=== PATIENT | female | born 1940 ===

== ENCOUNTER → 2020-07-09 09:58 | Outpatient (BNVA) | payer MEDICARE, SELFPAY | PROVIDERS: PCP Internal Medicine; Visit Provider Hospitalist | DX: J41.0 Simple chronic bronchitis (principal); J96.11 Chronic respiratory failure with hypoxia | CPT/HCPCS: 99212 ==

== ENCOUNTER 2020-12-13 08:54 | Outpatient (REF) | payer MEDICARE, SELFPAY ==
--- NOTE | 2020-12-13 17:35 | PFT_ITS ---
FLOWS: FEV1 of 74% of predicted at 1.22 L. FVC 99% of predicted at 2.23 L. FEV1 to FVC ratio of 0.55. No bronchodilator performed as the patient used her bronchodilator approximately 1-1/2 hours prior to the testing. LUNG VOLUMES: Total lung capacity 93% of predicted at 4.42 L. Residual volume 94% of predicted at 2.21 L. Slow vital capacity 91% of predicted at 2.21 L. Expiratory reserve volume 43% of predicted at 0.17 L. Diffusion capacity is severely decreased. IMPRESSION: Moderate obstructive ventilatory defect. No bronchodilator testing was performed as the patient has used her bronchodilator approximately 1-1/2 hours prior to the testing. Decreased diffusion capacity suggests emphysema. MD ADRIANA Quick/MODL / [id number]
== END 2020-12-13 08:55 | disposition home or self-care (01) ==
LOC: HO.RESP 08:54
PROVIDERS: PCP Internal Medicine; Visit Provider Hospitalist
DX: J41.0 Simple chronic bronchitis (principal)
CPT/HCPCS: 94010; 94727; 94729; 99212

== ENCOUNTER → 2021-07-04 13:03 | Outpatient (BNVA) | payer MEDICARE, SELFPAY | PROVIDERS: PCP Internal Medicine; Visit Provider Hospitalist | DX: J41.0 Simple chronic bronchitis (principal); J96.11 Chronic respiratory failure with hypoxia; Z79.899 Other long term (current) drug therapy | CPT/HCPCS: 99212 ==

== ENCOUNTER → 2022-04-14 14:38 | Outpatient (BNVA) | payer MEDICARE, SELFPAY | PROVIDERS: PCP Internal Medicine; Visit Provider Hospitalist | DX: J96.11 Chronic respiratory failure with hypoxia (principal); J41.0 Simple chronic bronchitis | CPT/HCPCS: 99212 ==

== ENCOUNTER 2023-04-20 15:11 | Outpatient (AMB) | payer MEDICARE, SELFPAY ==
[2023-04-20 15:21] VITALS: BMI 21.9
--- NOTE | 2023-04-20 15:21 | MHC.OFFVIS ---
Intake Vital Signs 04/20/23 15:21 Height 5 ft 1 in Weight 116 lb BMI 21.9 Intake Visit Reasons: 6 mins walk/COPD Flying I Instructor Required: No Allergies Bactrim Allergy (Severe, Uncoded 04/20/23 15:23) Rash HPI HPI Comments History of Present Illness Details The patient is an 83-year-old woman known history of COPD. Also has underlying hypoxia in uses oxygen at nighttime due to the COPD. She has been on QVAR and Bevespi with very good response. She has not had to use her rescue therapy. However, her insurance now is not covering the bevespi and will need alternative. The oxygen therapy has been affecting beneficial at nighttime. She does need to continue the oxygen therapy at nighttime. In the meantime the patient needs to be switched ove to a different maintenance inhaler since is not being covered. I do believe trilogy will be a good option for her. In the meantime will have her go back Anoro since she still has QVAR. 12/2019 the patient is here for pulmonary follow-up visit. Overall she feels well. She still complains of dyspnea on exertion moderate severity. Specially when walking outside. She does take the QVAR and also the Anoro with good effect. Sometimes she takes the QVAR and she does not feel like she is getting any medication to her system her. We did talk about starting her on trelegy which she is going to be able to take all medicines at once and have better compliance with the medication. She also uses the oxygen at nighttime with good effect. She has qualified in the past for portable oxygen therapy. She is reluctant to use portable oxygen at this time. Whenever she decides to consider portable oxygen will have her come in for 6 minutes walk test for her for her to qualify for it. 07/09/2020 the patient is here for pulmonary follow-up visit. Overall the patient has been doing well. She had tried the Trelegy inhaler but was not effective for her. Therefore she went back to using the Anoro. She has not been using the QVAR. She denies any mucus production denies any wheezing. This point I think she probably best with the inhale type of medication for maintenance inhaler. Therefore I will send her Bevespi to the pharmacy. We did talk about her x-ray that she had back in December which demonstrated no acute disease. And right now she is diminished. She is using oxygen at nighttime for her nocturnal hypoxia. She may need oxygen with activity. She does check herself at home with a pulse ox and she does not drop below 90%. Will plan to do pulmonary function studies and a 6 minutes walk test during her next visit. 12/13/2020 the patient is here for a pulmonary follow-up visit. She continues to have dyspnea exertion. Moderate in severity. She does not feel the Bevespi or any other inhaler really made a significant difference in her breathing. She has been using her oxygen nighttime. When she is resting she does not feel short of breath. The patient is also recovering a fall where she fractured some ribs. She was evaluated [facility] where she did undergo a CT scan of the chest demonstrating extensive emphysema and the rib fracture. During the visit the patient did undergo pulmonary function studies which were personally viewed by me demonstrating a severe diffusion impairment secondary to her emphysema. The patient did undergo a 6 minutes walk where she did desaturate down to 85% air. She was then placed 3 L her oxygenation did improve to 94 activity. Therefore, will arrange her [employer] to get oxygen portability outside the. Also requested that they performed a conserving device trial to see if she qualifies for a smaller pulse oxygen. 07/04/2021 the patient is here for a pulmonary follow-up visit. The patient apparently developed signs and symptoms consistent with stroke. She could not walk any further. She was taken to [facility] which was admitted. She was diagnosed with a stroke in addition to that she was diagnosed with a myocardial infarction. She did undergo a cardiac catheterization and had a stent placement. In the meantime she continues use the oxygen at nighttime. The oxygen therapy has been affecting beneficial. She was wondering if she should be retested. However, we did review her pulmonary function studies demonstrating a diffusing capacity of only 25 percent predicted. The patient did have a CT scan of the chest also when she went to [facility]. We did personally reviewed. She does have extensive emphysema. No nodular densities to wear well. She does have a significant hiatal hernia. As far as her respiratory status is about the same. She continues on the Bevespi twice a day. She is wondering if this is helpful. Again, we did review her pulmonary function studies demonstrating underlying COPD. I did encourage to continue it but okay for her to just use it once a day. 04/14/2022 the patient is here for a pulmonary follow-up visit. Overall the patient has been doing well. She was briefly hospitalized after having altered mental status changes. Likely from medication and a UTI. The patient now is doing better. She is back to orientation x3. While a [facility] she did have a chest x-ray that I personally reviewed. No acute disease noted. The patient has been using the oxygen at nighttime. She states that when she was at rehab she did in use the oxygen at all. She is wondering if he still needs it. Concur go ahead and perform an overnight oximetry on room air to see if she still needs it. Explained to the patient that sometimes the overnight ox oximetries test I does not shots done always tell the full story. Will go ahead and do the testing. 04/20/2023 the patient is here for a pulmonary follow-up visit. She is been having hard time with her breathing. Having significant shortness of breath and chest tightness. The patient has been using her oxygen with sleep. Although even with minimal activity she is getting very winded. She has a hard time walking because of her musculoskeletal issues. She does use a walker for the most part. The patient is wondering if she needs oxygen with activity. In the meantime she has been using the Bevespi inhaler. She does not have a rescue inhaler. She has significant wheezing on examination with a very prolonged expiratory phase. We did provide her with a nebulized treatment in the office with Xopenex and improvement was significant. Therefore we will provide her with a nebulizer for her to take with her. She can use the nebulizer with Xopenex in addition to budesonide. She should continue with Bevespi. The patient will need a little bit of prednisone just to try to improve her respiratory symptoms a little faster. Patient also went for a very brief walking oximetry. She is very limited only walking about 25 ft. However, her pulse ox was decreased down to about 84 %. Although difficult to get a good wave. We did place on 3 L maintaining a pulse ox of 92% so therefore the patient will be able to use 3 L with activity and 2 L with sleep. Does not appear that she needs oxygen at rest at this time. If the patient is no better she will call the office and request a chest x-ray. will have the patient follow-up in 3 months time. The patient will call the office if she is not doing any better prior to that. Will send a script also as a revision for her oxygen in order for her to get portable tanks to be able to take with her outside of the home. Based on her oxygen needs she will not likely a qualify for a conserving valve at this time. Will reassess a conserving valve during her next visit in 3 months. [facility] Medical History (Updated 07/04/21 @ 22:00 by Landen Isidro MD) CAD (coronary artery disease) CVA (cerebral vascular accident) Chronic respiratory failure COPD (chronic obstructive pulmonary disease) Social History (Updated 12/13/20 @ 10:06 by HERMELINDO Hatch) Patient Tobacco Use Status: Former Tobacco user Tobacco use type: Cigarette Years Smoked: 30 years Review of Systems Const Denies night sweats and Reports weakness ENT Denies change in voice, Denies lip swelling, Denies mouth pain, Reports nasal congestion, Reports nasal discharge and Denies tongue swelling Card Denies chest pain, Reports dyspnea and Reports dyspnea on exertion Resp Reports cough, Reports dyspnea, Reports dyspnea on exertion and Reports wheezing GI Denies abdominal pain Musc Denies no additional complaints Neuro Reports Neuro-related abnormal movements, Reports paresthesias and Reports weakness Psych Denies no additional complaints Kumar/Lymph Denies easy bleeding and Denies lymphadenopathy Aller/Immun Denies lip swelling, Denies tongue swelling and Reports wheezing Physical Exam Vital Signs: BMI result Body Mass Index 21.9 Const General: alert Neck Neck: Yes normal visual inspection, Yes full ROM and Yes no lymphadenopathy Chest Chest palpation & inspection: normal inspection of the chest Resp Effort & Inspection: prolonged expiratory phase Auscultation: wheezes and diminished lung sounds Cardio Rate: regular rate Rhythm: regular rhythm Heart sounds: S1 normal heart sound present and S2 normal heart sound present GI Palpation (GI): Soft to palpation and nontender Auscultation: normal bowel sounds Skin General skin exam: rashes and/or lesions noted Extrem Right lower extremity: foot Details: ROM of toes abnormal Office Procedures 6 Minute Walk Time:: 22:33 SPO2 % at rest: 92 Pulse at rest: 78 SPO2 % during excercise: 84 Pulse during excercise: 89 Distance in yards walked: 25 Homer Score: 7 Supplemental Oxygen: Ambulated with walker and 2 assist, Low pox with activity on RA 84%. 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 1.25 mg inhalation 3 mL [id number] 12/30/23 72611-273-27 [employer] Assessment & Plan Assessment & Plan (1) Chronic respiratory failure: Code(s): J96.10 - Chronic respiratory failure, unspecified whether with hypoxia or hypercapnia Qualifiers: Respiratory failure complication: hypoxia Qualified Code(s): J96.11 - Chronic respiratory failure with hypoxia (2) COPD (chronic obstructive pulmonary disease): Code(s): J44.9 - Chronic obstructive pulmonary disease, unspecified Qualifiers: COPD type: chronic bronchitis Chronic bronchitis type: simple Qualified Code(s): J41.0 - Simple chronic bronchitis Plan Continue Bevespi, ok to use once a day Predniaone taper continue 2 L while sleeping start 3L NC with activity Provided nebulizer Xopenex BID BUdesonide daily. Prednisone taper CXR if no better Follow-up in 3 months Orders: Orders AMB Nebulizer Treatment Today J44.9 - Chronic obstructive pulmonary disease, unspecified Medications: New prednisone PO daily; Take 2 tabs daily x 5 days, then 1 tab daily x 5 days 10 days 15 tabs 0RF budesonide 0.5 mg (2 mL) inhalation DAILY 30 days 60 mL 11RF J44.9 - Chronic obstructive pulmonary disease, unspecified levalbuterol HCl 1.25 mg (3 mL) inhalation BID 30 days 180 mL 11RF J44.9 - Chronic obstructive pulmonary disease, unspecified Coding Level of Care Code Est Pt Level 4 (92203) Diagnoses Chronic respiratory failure with hypoxia J96.11 Respiratory failure complication: hypoxia Simple chronic bronchitis J41.0 COPD type: chronic bronchitis Chronic bronchitis type: simple CPT Codes Coding ([id number]) Nebulizer Treatment - Nebulizer Treatment, initial or subsequent: [id number]/MDI RX initial, or Nebulizer Subsequent Treatment ([id number]) Time Spent (min) 18
[2023-04-20 22:32] VITALS: PULSE 78; O2SAT 92
== END 2023-04-21 07:55 | disposition home or self-care (01) ==
PROVIDERS: PCP Internal Medicine; Visit Provider Hospitalist
DX: J96.11 Chronic respiratory failure with hypoxia (principal); J41.0 Simple chronic bronchitis
CPT/HCPCS: 94618; 99214

== ENCOUNTER → 2023-04-20 15:11 | Outpatient (BNVA) | payer MEDICARE, SELFPAY | PROVIDERS: PCP Internal Medicine; Visit Provider Hospitalist | DX: J96.11 Chronic respiratory failure with hypoxia (principal); J41.0 Simple chronic bronchitis | CPT/HCPCS: 94618; 94640; 99212 ==

== ENCOUNTER 2024-08-02 14:55 | Outpatient (AMB) | payer MEDICARE, SELFPAY ==
--- NOTE | 2024-08-02 14:57 | A.OFFVIS_ITS ---
Vital Signs 08/02/24 15:00 Height 5 ft 2 in Weight 120 lb 2.431 oz BMI 22.0 BP 148/70 H Blood Pressure Location Lt brachial Position Sitting Pulse 61 Pulse Source Pulse Oximeter Pulse Oximetry (%) 88 L Oxygen Delivery Method Room Air Intake Visit Reasons: COPD Allergies Bactrim Allergy (Severe, Uncoded 08/02/24 15:05) Rash Medication List - Last Reconciled 08/02/24 by Ruthie Stafford, BARBRA albuterol sulfate 90 mcg/actuation 2 puffs PO Q6H PRN aspirin 81 mg PO DAILY atorvastatin 80 mg PO DAILY baclofen 5 mg PO BID PRN bisoprolol fumarate 5 mg PO DAILY budesonide 0.5 mg (2 mL) inhalation DAILY 90 days vac 2019 [id number](PF) 60 mcg (15 mcg x 4)/0.5 mL IM folic acid 1 mg PO DAILY furosemide 20 mg PO BID glycopyrrolate-formoterol 9-4.8 mcg (Bevespi Aerosphere) 2 puffs inhalation Q12H 30 days levalbuterol HCl 1.25 mg (3 mL) inhalation BID 90 days levalbuterol tartrate 45 mcg/actuation (Xopenex HFA) 2 puffs inhalation Q6H PRN 30 days levothyroxine 75 mcg PO DAILY metformin 500 mg PO DAILY pantoprazole 40 mg PO DAILY prednisone PO daily; Take 2 tabs daily x 5 days, then 1 tab daily x 5 days 10 days simvastatin 80 mg PO DAILY venlafaxine 75 mg PO BID HPI Comments Details: The patient is an 84-year-old woman known history of COPD. Also has underlying hypoxia in uses oxygen at nighttime due to the COPD. She has been on QVAR and Bevespi with very good response. She has not had to use her rescue therapy. However, her insurance now is not covering the bevespi and will need alternative. The oxygen therapy has been affecting beneficial at nighttime. She does need to continue the oxygen therapy at nighttime. In the meantime the patient needs to be switched ove to a different maintenance inhaler since is not being covered. I do believe trilogy will be a good option for her. In the meantime will have her go back Anoro since she still has QVAR. 12/2019 the patient is here for pulmonary follow-up visit. Overall she feels well. She still complains of dyspnea on exertion moderate severity. Specially when walking outside. She does take the QVAR and also the Anoro with good effect. Sometimes she takes the QVAR and she does not feel like she is getting any medication to her system her. We did talk about starting her on trelegy which she is going to be able to take all medicines at once and have better compliance with the medication. She also uses the oxygen at nighttime with good effect. She has qualified in the past for portable oxygen therapy. She is reluctant to use portable oxygen at this time. Whenever she decides to consider portable oxygen will have her come in for 6 minutes walk test for her for her to qualify for it. 07/09/2020 the patient is here for pulmonary follow-up visit. Overall the patient has been doing well. She had tried the Trelegy inhaler but was not effective for her. Therefore she went back to using the Anoro. She has not been using the QVAR. She denies any mucus production denies any wheezing. This point I think she probably best with the inhale type of medication for maintenance inhaler. Therefore I will send her Bevespi to the pharmacy. We did talk about her x-ray that she had back in December which demonstrated no acute disease. And right now she is diminished. She is using oxygen at nighttime for her nocturnal hypoxia. She may need oxygen with activity. She does check herself at home with a pulse ox and she does not drop below 90%. Will plan to do pulmonary function studies and a 6 minutes walk test during her next visit. 12/13/2020 the patient is here for a pulmonary follow-up visit. She continues to have dyspnea exertion. Moderate in severity. She does not feel the Bevespi or any other inhaler really made a significant difference in her breathing. She has been using her oxygen nighttime. When she is resting she does not feel short of breath. The patient is also recovering a fall where she fractured some ribs. She was evaluated [facility] where she did undergo a CT scan of the chest demonstrating extensive emphysema and the rib fracture. During the visit the patient did undergo pulmonary function studies which were personally viewed by me demonstrating a severe diffusion impairment secondary to her emphysema. The patient did undergo a 6 minutes walk where she did desaturate down to 85% air. She was then placed 3 L her oxygenation did improve to 94 activity. Therefore, will arrange her DME company to get oxygen portability outside the. Also requested that they performed a conserving device trial to see if she qualifies for a smaller pulse oxygen. 07/04/2021 the patient is here for a pulmonary follow-up visit. The patient apparently developed signs and symptoms consistent with stroke. She could not walk any further. She was taken to [facility] which was admitted. She was diagnosed with a stroke in addition to that she was diagnosed with a myocardial infarction. She did undergo a cardiac catheterization and had a stent placement. In the meantime she continues use the oxygen at nighttime. The oxygen therapy has been affecting beneficial. She was wondering if she should be retested. However, we did review her pulmonary function studies demonstrating a diffusing capacity of only 25 percent predicted. The patient did have a CT scan of the chest also when she went to [facility]. We did personally reviewed. She does have extensive emphysema. No nodular densities to wear well. She does have a significant hiatal hernia. As far as her respiratory status is about the same. She continues on the Bevespi twice a day. She is wondering if this is helpful. Again, we did review her pulmonary function studies demonstrating underlying COPD. I did encourage to continue it but okay for her to just use it once a day. 04/14/2022 the patient is here for a pulmonary follow-up visit. Overall the patient has been doing well. She was briefly hospitalized after having altered mental status changes. Likely from medication and a UTI. The patient now is doing better. She is back to orientation x3. While a [facility] she did have a chest x-ray that I personally reviewed. No acute disease noted. The patient has been using the oxygen at nighttime. She states that when she was at rehab she did in use the oxygen at all. She is wondering if he still needs it. Concur go ahead and perform an overnight oximetry on room air to see if she still needs it. Explained to the patient that sometimes the overnight ox oximetries test I does not shots done always tell the full story. Will go ahead and do the testing. 04/20/2023 the patient is here for a pulmonary follow-up visit. She is been having hard time with her breathing. Having significant shortness of breath and chest tightness. The patient has been using her oxygen with sleep. Although even with minimal activity she is getting very winded. She has a hard time walking because of her musculoskeletal issues. She does use a walker for the most part. The patient is wondering if she needs oxygen with activity. In the meantime she has been using the Bevespi inhaler. She does not have a rescue inhaler. She has significant wheezing on examination with a very prolonged expiratory phase. We did provide her with a nebulized treatment in the office with Xopenex and improvement was significant. Therefore we will provide her with a nebulizer for her to take with her. She can use the nebulizer with Xopenex in addition to budesonide. She should continue with Bevespi. The patient will need a little bit of prednisone just to try to improve her respiratory symptoms a little faster. Patient also went for a very brief walking oximetry. She is very limited only walking about 25 ft. However, her pulse ox was decreased down to about 84 %. Although difficult to get a good wave. We did place on 3 L maintaining a pulse ox of 92% so therefore the patient will be able to use 3 L with activity and 2 L with sleep. Does not appear that she needs oxygen at rest at this time. If the patient is no better she will call the office and request a chest x-ray. will have the patient follow-up in 3 months time. The patient will call the office if she is not doing any better prior to that. Will send a script also as a revision for her oxygen in order for her to get portable tanks to be able to take with her outside of the home. Based on her oxygen needs she will not likely a qualify for a conserving valve at this time. Will reassess a conserving valve during her next visit in 3 months. 08/02/2024 the patient is here for pulmonary follow-up visit. The patient since we last spoke has had further physical limitations. She does need a walker with any activity and sometimes she does use a wheelchair to get around because of her unsteady gait. She does have extensive emphysema on CT scan and also evidence of chronic hypoxic respiratory failure requiring oxygen. She does use oxygen 2 L at rest and also with activity and sleep. She has a hard time caring the oxygen tanks because the now she is very limited physically. Therefore will request a portable oxygen concentrator at 2 L pulse the patient can use with more ease outside of the home. In addition to that she continue to use the oxygen 2 L while sleeping. She has had issues with her inhalers were now the Bevespi 2 expensive. Anoro seems to be just as expensive. Also Wixela to the pharmacy. She also can use a nebulizer. Hold off on the budesonide. COUNTS INCLUDE 234 BEDS AT THE [facility] Medical History (Updated 07/04/21 @ 22:00 by Landen Isidro MD) CAD (coronary artery disease) CVA (cerebral vascular accident) Chronic respiratory failure COPD (chronic obstructive pulmonary disease) Social History (Updated 12/13/20 @ 10:06 by HERMELINDO Hatch) Patient Tobacco Use Status: Former Tobacco user Tobacco use type: Cigarette Years Smoked: 30 years Physical Exam Vital Signs: Last Vital Signs Pulse 61 08/02/24 15:00 BP 148/70 H 08/02/24 15:00 Pulse Ox 90 L 08/02/24 15:00 Oxygen Delivery Method Room Air 08/02/24 15:00 BMI result Body Mass Index 22.0 Office Procedures 6 Minute Walk Time:: 20:54 SPO2 % at rest: 88 Pulse at rest: 61 Distance in yards walked: 25 Homer Score: 4 Supplemental Oxygen: Hypoxic at rest 88%, placed on 2L/pulse improving pox 93%, then ambulated with a walker on 2L/pulse with pox 91% [id number] - 6 Minute Walk Assessment & Plan Assessment & Plan (1) Chronic respiratory failure: Code(s): J96.10 - Chronic respiratory failure, unspecified whether with hypoxia or hypercapnia Category: Medical Qualifiers: Respiratory failure complication: hypoxia Qualified Code(s): J96.11 - Chronic respiratory failure with hypoxia (2) COPD (chronic obstructive pulmonary disease): Code(s): J44.9 - Chronic obstructive pulmonary disease, unspecified Category: Medical Qualifiers: COPD type: chronic bronchitis Chronic bronchitis type: simple Qualified Code(s): J41.0 - Simple chronic bronchitis Plan stop Bevespi start Wixela Xopenex BID Stop Budesonide CXR oxygen revision: Requesting POC oxygen 2L/pulse for portability outside of the home. 2l/min while sleeping Follow-up in 3 months Orders: Orders XR chest 2V Today J41.0 - Simple chronic bronchitis Medications: New fluticasone propion-salmeterol 250-50 mcg/dose (Wixela Inhub) 1 inh inhalation Q12H 60 ea 11RF 30 days Refilled levalbuterol HCl 1.25 mg (3 mL) inhalation BID 540 mL 3RF 90 days J44.9 - Chronic obstructive pulmonary disease, unspecified Coding Level of Care Code Est Pt Level 4 (19688) Complex EM visit Add On G2211 Diagnoses Chronic respiratory failure with hypoxia J96.11 Respiratory failure complication: hypoxia Simple chronic bronchitis J41.0 COPD type: chronic bronchitis Chronic bronchitis type: simple CPT Codes Coding ([id number]) Time Spent (min) 18
[2024-08-02 15:00] VITALS: BP 148/70; PULSE 61; O2SAT 88; BMI 22.0
--- OUTSIDE RECORDS SUMMARY | 2024-08-02 18:51 | XMS_ITS ---
Author Name [facility] Organization Unknown History of Medication Use Medication Directions Dispensed Refills Start Date End Date Stat us atorvastatin (LIPITOR) tablet 80 mg Take 1 tablet (80 mg total) by mouth daily. 01/28/2024 active furosemide (LASIX) 20 MG tablet Take 1 tablet (20 mg total) by mouth 2 (two) times a day. 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
--- OUTSIDE RECORDS SUMMARY | 2024-08-02 18:51 | XMS_ITS | Encounter Summary ---
Author Organization [facility] Address [address] [place] [address] Care Team Providers Care Bit Grinder Name Role Phone Byron Serra MD Primary Care Provider [phone] Reason for Visit * Reason Comments Establish Care * Other Medical (Routine) - Authorized Specialty Diagnoses / Procedures Referred By Contac t Referred To Contact Cardiology Diagnoses Chronic systolic heart failure (CMS/HCC) [Per: Suhail Serra, DX: Chronic systolic heart failure, Next Avail] 03/16/24- ECHO- mld info,N/S [place]- [facility] Procedures TRANSTHORACIC ECHOCARDIOGRAM (TTE) COMPLETE (CONTRAST/BUBBLE/3D PRN) TRANSTHORACIC ECHO COMPLETE Byron Serra MD Phone: tel: fax: [facility] Cardiology [facility] [address] [place] [address] Phone: tel: fax: Referral ID Status Reason Start Date Expiration Date V isits Requested Visits Authorized [id number] Authorized 09/14/2023 09/13/2024 8 8 Encounter Details Date Type Department Care Team (Late st Contact Info) Description 07/14/2024 3:00 PM EST Office Visit [facility] Cardiology [facility] [address] [place] [address] Ean Felix MD [address] [place] [address] Coronary artery disease, unspecified vessel or lesion type, unspecified whether angina present, unspecified whether cold [place] or transplanted heart; Heart failure, unspecified HF chronicity, unspecified heart failure type (CMS/HCC) Social History Tobacco Use Types Packs/Day Years Used Date Smoking Tobacco: Never Tobacco Cessation:Counseling Given: Not Answered Alcohol Use Standard Drinks/Week Comments Not Currently 0 (1 standard drink = 0.6 oz pur e alcohol) Comments Unknown Sex and Gender Information Value Date Recorded Sex Assigned at Not on file Legal Sex Female 6:42 AM EST Gender Identity Not on file Sexual Orientation Not on file documented as of this encounter Last Filed Vital Signs Vital Sign Reading Time Taken Comments Blood Pressure 104/66 07/14/2024 2:42 PM EST Pulse 61 07/14/2024 2:42 PM EST Temperature - - Respiratory Rate - - Oxygen Saturation 99% 07/14/2024 2:42 PM EST Inhaled Oxygen Concentration - - Weight 54.4 kg (120 lb) 07/14/2024 2:42 PM EST Height 157.5 cm (5' 2 ) 07/14/2024 2:42 PM EST Body Mass Index 21.95 07/14/2024 2:42 PM EST documented in this encounter Ordered Prescriptions Prescription Sig Dispense Quantity Refills Last Filled Start Date End Date furosemide (LASIX) 20 mg tablet Take 1 tablet (20 mg total) by mouth 1 (one) time each day. 07/14/2024 documented in this encounter Progress Notes * Ean Felix MD - 07/14/2024 3:00 PM ESTAssociated Problem(s): Coronary artery disease Status post PCI of RCA almost 4 years ago. No recurrent angina or ACS since then. Will continue aspirin, and high-dose statin. Orders: Ambulatory referral to Cardiology ECG 12 lead * Ean Felix MD - 07/14/2024 3:00 PM EST 1 year * Ean Felix MD - 07/14/2024 3:00 PM EST Images from the original note were not included. PCP: Byron Serra MD HPI: This is a pleasant 82-year-old female with past medical history significant for coronary artery disease status post non-STEMI with JASMEET to the mid RCA in March 2021, mild HFrEF, cardiomyopathy, CVA with residual right hemiparesis, COPD, and hypothyroidism. She was last in the office a year ago. Cardiac catheterization in March 2021 revealed 20% left main disease, 45% proximal LAD, 60% D2, 30% l eft circumflex, 80% mid RCA diagnosis the culprit lesion, 40% proximal RCA, 30% distal RCA where she received drug-eluting stent to the mid RCA. She was seen by Dr. Arndt previously. Ms. Leigh is here for a routine follow-up accompanied by her family member. Cardiac raygoza, she is doing fine and has no chest discomfort. She had a very brief palpitation a couple months ago, lasting for a couple minutes. Otherwise, she never had a prolonged palpitation. Shortness of breath has beensame and she has been wearing her oxygen constantly for a few years for severe COPD and no portableoxygen unfortunately. She has been using wheelchair since CVA. She was hospitalized briefly to [facility] in October 2023 for acute respiratory failure after interruption of home O2. Echocardiogram was repeated during that hospitalization and showed low normal left ventricular systolic function with wall motion abnormality, no significant valvular abnormalities. ROS: All pertinent review of systems as stated in HPI otherwise reviewed and are negative. PAST MEDICAL HISTORY: CAD COPD CVA Diabetes Heart failure ACTIVE MEDICATIONS: Outpatient Medications Marked as Taking for the 07/14/24 encounter (Office Visit) with Ean Felix MD Medication Sig Dispense Refill atorvastatin (LIPITOR) 80 mg tablet Take 80 mg by mouth daily. baclofen (LIORESAL) 5 mg tablet Take 1 tablet (5 mg total) by mouth 2 (two) times a day. bisoprolol (ZEBETA) 5 mg tablet Take 5 mg by mouth daily. folic acid (FOLVITE) 1 mg tablet TAKE 1 TABLET BY MOUTH EVERY DAY FOR 90 DAYS furosemide (LASIX) 20 mg tablet Take 1 tablet (20 mg total) by mouth 1 (one) time each day. levothyroxine (SYNTHROID, LEVOTHROID) 75 mcg tablet TAKE 1 TABLET BY MOUTH EVERY DAY FOR 90 DAYS metFORMIN (GLUCOPHAGE) 500 mg tablet TAKE 1 TABLET BY MOUTH EVERY DAY WITH A MEAL FOR 90 DAYS pantoprazole (PROTONIX) 40 mg EC tablet Take 40 mg by mouth daily. venlafaxine (EFFEXOR) 75 mg tablet TAKE 1 TABLET BY MOUTH TWICE A DAY WITH FOOD [DISCONTINUED] furosemide (LASIX) 20 mg tablet Take 20 mg by mouth 2 times daily. ALLERGIES: Allergies Allergen Reactions Sulfamethoxazole-Trimethoprim PHYSICAL EXAM: Vitals: 07/14/24 1442 BP: 104/66 Pulse: 61 SpO2: 99% Weight: 54.4 kg (120 lb) Height: 1.575 m (62 ) Physical Exam APPEARANCE: Alert and in no acute distress EYES: PERRLA, conjunctiva and sclera normal. NECK: Neck supple, thyroid symmetric and of normal size HEART: RRR with normal S1 and S2, no murmurs, no gallops, no JVD appreciated LUNG: diminished in all العلي ABDOMEN: Bowel sounds normoactive, soft, non-tender, without organomegaly or palpable masses EXTREMITIES: Extremities warm and well perfused without clubbing, cyanosis, or edema NEURO: Awake, alert. R hemiphresis SKIN: Skin color, texture, turgor normal. No rashes or lesions. MUSCULOSKELETAL: use a wheelchair TESTING: EKG: IMPRESSION: 1. Coronary artery disease, unspecified vessel or lesion type, unspecified whether angina present, unspecified whether [place] or transplanted heart 2. Heart failure, unspecified HF chronicity, unspecified heart failure type (CMS/HCC) ASSESSMENT/PLAN: Assessment & Plan Coronary artery disease, unspecified vessel or lesion type, unspecified whether angina present, unspecified whether cold [place] or transplanted heart Status post PCI of RCA almost 4 years ago. No recurrent angina or ACS since then. Will continue aspirin, and high-dose statin. Orders: Ambulatory referral to Cardiology ECG 12 lead Heart failure, unspecified HF chronicity, unspecified heart failure type (CMS/HCC) She appears euvolemic. Will reduce furosemide to 20 mg daily. Orders: Ambulatory referral to Cardiology ECG 12 lead B-type natriuretic peptide; Future The [facility] team will continue to co-manage this patient following the plan of care as established by my initial visit and as per AHA guidelines for ongoing management and surveillance of CAD and heart failure . This will include medication titration, initiation of appropriate medications and further ti tration, and diagnostic studies to manage this disease process. Thank you for allowing us to participate in the care of this patient. The patient will follow up with Cardiology 1 year CC: @PCP documented in this encounter Plan of Treatment Scheduled Orders Name Type Priority Associated Diagnoses Orde r Schedule B-type natriuretic peptide Lab Routine Heart failure, unspecified HF chronicity, unspecified heart failure type (CMS/HCC) 1 Occurrences starting 07/14/2024 until 07/14/2025 documented as of this encounter Procedures Procedure Name Priority Date/Time Associated Diagnosis Comments ECG 12-LEAD Routine 07/14/2024 2:54 PM EST Coronary artery disease, unspecified vessel or lesion type, unspecified whether angina present, unspecified whether [place] or transplanted heart Heart failure, unspecified HF chronicity, unspecified heart failure type (CMS/HCC) documented in this encounter Results * ECG 12 lead (07/14/2024 2:54 PM EST) Ventricular Rate ECG 61 BPM GEMUSE Atrial Rate 61 BPM GEMUSE P-R Interval 130 ms GEMUSE QRS Duration 90 ms GEMUSE Q-T Interval 398 ms GEMUSE QTc 400 ms GEMUSE P Wave [place] 85 degrees GEMUSE R [place] 84 degrees GEMUSE T [place] -56 degrees GEMUSE ECG Interpretation Normal sinus rhythm ST and T wave abnormality, consider inferior ischemia Abnormal ECG When compared with ECG of 12-DEC-2005 00:24, Nonspecific T wave abnormality now evident in Lateral leads Confirmed by Minh FELIX YUFENG ([id number]) on 07/14/2024 3:35:56 PM GEMUSE 07/14/2024 2:54 PM EST 07/14/2024 3:35 PM EST us Ean Felix MD ECG ORDERABLES Final Result GEMUSE documented in this encounter Visit Diagnoses Diagnosis Coronary artery disease, unspecified vessel or lesion type, unspecified whether angina present, unspecified whether [place] or transplanted heart Heart failure, unspecified HF chronicity, unspecified heart failure type ([facility]) documented in this encounter Discontinued Medications Medication Sig Discontinue Reason Start Date End Da te furosemide (LASIX) 20 mg tablet Take 20 mg by mouth 2 times daily. Reorder 07/14/2024 documented as of this encounter Historical Medications * This list may reflect changes made after this encounter. aspirin 81 mg EC tablet Take 1 tablet (81 mg total) by mouth 1 (one) time each day. glycopyrrolate-fo rmoterol (Bevespi Aerosphere) 9-4.8 mcg HFA aerosol inhaler inhaler Inhale 2 puffs by mouth 2 (two) times a day. added in this encounter Orders Outpatient Referral Count Last Ordered Date Fir st Ordered Date AMB REFERRAL TO CARDIOLOGY 1 07/14/2024 documented in this encounter Care Teams Bit Grinder Relationship Specialty Start Date End Date Byron Serra MD [address] [place] [id number] PCP - General Internal Medicine 05/06/24 documented as of this encounter
--- OUTSIDE RECORDS SUMMARY | 2024-08-02 18:51 | XMS_ITS | Clinical Summary ---
Author Organization [facility] [employer] Address [address] [place] [address] Phone Care Team Providers Care Crew Member Name Role Phone Byron Serra MD Primary Care Provider Allergies Active Allergy Reactions Criticality Noted Date Comments Sulfamethoxazole-Trimethoprim 2023 Medications atorvastatin (LIPITOR) 80 mg tablet Take 80 mg by mouth daily. Active baclofen (LIORESAL) 5 mg tablet Take 1 tablet (5 mg total) by mouth 2 (two) times a day. Active bisoprolol (ZEBETA) 5 mg tablet Take 5 mg by mouth daily. Active folic acid (FOLVITE) 1 mg tablet TAKE 1 TABLET BY MOUTH EVERY DAY FOR 90 DAYS Active levothyroxine (SYNTHROID, LEVOTHROID) 75 mcg tablet TAKE 1 TABLET BY MOUTH EVERY DAY FOR 90 DAYS Active pantoprazole (PROTONIX) 40 mg EC tablet Take 40 mg by mouth daily. Active venlafaxine (EFFEXOR) 75 mg tablet TAKE 1 TABLET BY MOUTH TWICE A DAY WITH FOOD Active metFORMIN (GLUCOPHAGE) 500 mg tablet TAKE 1 TABLET BY MOUTH EVERY DAY WITH A MEAL FOR 90 DAYS Active glycopyrrolate- formoterol (Bevespi Aerosphere) 9-4.8 mcg HFA aerosol inhaler inhaler Inhale 2 puffs by mouth 2 (two) times a day. Active furosemide (LASIX) 20 mg tablet Take 1 tablet (20 mg total) by mouth 1 (one) time each day. 5 Active aspirin 81 mg EC tablet Take 1 tablet (81 mg total) by mouth 1 (one) time each day. Active furosemide (LASIX) 20 mg tablet Take 20 mg by mouth 2 times daily. 07/14/19 25 Discontinu ed(Reorder ) Active Problems Problem Noted Date Diagnosed Date Coronary artery disease 07/14/2024 Assessment & Plan (07/14/2024 4:59 PM EST): Status post PCI of RCA almost 4 years ago. No recurrent angina or ACS since then. Will continue aspirin, and high-dose statin. Orders: Ambulatory referral to Cardiology ECG 12 lead Encounters Date Type Department Care Team Description 07/14/2024 3:00 PM EST Office Visit [facility] [address] [place] [address] Ean Felix MD Coronary artery disease, unspecified vessel or lesion type, unspecified whether angina present, unspecified whether [place] or transplanted heart; Heart failure, unspecified HF chronicity, unspecified heart failure type ([facility]) 05/06/2024 Telephone [facility] [address] [place] [id number] Provider, MD Garrett Appointment; Referral from Last 3 Months Surgical History Surgery Date Site/Laterality Comments HYSTERECTOMY PROCEDURE:HYSTERECTOMY SECTION PROCEDURE: SECTION CAROTID STENT PROCEDURE:CAROTID STENT Medical History Medical History Date Comments Hypothyroidism DX:Hypothyroidis m Stroke ([facility]) DX:Stroke ([facility]) Social History Tobacco Use Types Packs/Day Years [...] on file Sexual Orientation Not on file Obstetrics History Last Filed Vital Signs Vital Sign Reading [...] Mass Index 21.95 07/14/2024 2:42 PM EST Plan of Treatment Health Maintenance Due Date Last Done Comments DTaP,Tdap,and Td Vaccines (1 - Tdap) 1959 Pneumococcal Vaccine: 50+ Years (1 of 2 - PCV) 1959 Zoster Vaccines (3 of 3) 02/24/2018 12/30/2017, 07/30 Cholesterol Screening (Lipid Panel) 05/04/2022 Depression Screening 05/04/2022 Falls Risk Assessment 05/04/2022 Medicare Annual Wellness Visit 05/04/2022 Osteoporosis Screening (Bone Density Screening) 05/04/2022 Social Influencers of Health Screening 05/04/2022 Hypertension/CHF/CAD Annual BMP Blood Test 07/15/2023 RSV Immunization Patients 60+ Years Old Completed 04/11/2023 COVID-19 Vaccine Completed 04/09/2024, , 12/05/2021, Additional history exists Influenza Vaccine Completed 04/09/2024, , 04/11/2021, Additional history exists HIB Vaccines Aged Out No longer eligi ble based on patient's age to complete this topic HPV Vaccines Aged Out No longer eligi ble based on patient's age to complete this topic Hepatitis A Vaccines Aged Out No long er eligible based on patient's age to complete this topic Hepatitis B Vaccines Aged Out No long er eligible based on patient's age to complete this topic IPV Vaccines Aged Out No longer eligi ble based on patient's age to complete this topic MMR Vaccines Aged Out No longer eligi ble based on patient's age to complete this topic Meningococcal ACWY Vaccine Aged Out N o longer eligible based on patient's age to complete this topic Meningococcal B Vacine Aged Out No lo nger eligible based on patient's age to complete this topic RSV Immunization Patients Under 20 months Aged Out No longer eligible based on patient's age to complete this topic Varicella Vaccines Aged Out No longer eligible based on patient's age to complete this topic Procedures Procedure Name Priority Date/Time Associated Diagnosis Comments ECG 12-LEAD Routine 07/14/2024 2:54 PM EST Coronary artery disease, unspecified vessel or lesion type, unspecified whether angina present, unspecified whether [place] or transplanted heart Heart failure, unspecified HF chronicity, unspecified heart failure type ([facility]) from Last 3 Months Results * ECG 12 lead (07/14/2024 2:54 PM EST) Ventricular Rate ECG 61 BPM GEMUSE Atrial Rate 61 BPM GEMUSE P-R Interval 130 ms GEMUSE QRS Duration 90 ms GEMUSE Q-T Interval 398 ms GEMUSE QTc 400 ms GEMUSE P Wave [place] 85 degrees GEMUSE R [place] 84 degrees GEMUSE T [place] -56 degrees GEMUSE ECG Interpretation Normal sinus rhythm ST and T wave abnormality, consider inferior ischemia Abnormal ECG When compared with ECG of 12-DEC-2005 00:24, Nonspecific T wave abnormality now evident in Lateral leads Confirmed by Minh FELIX, EAN ([id number]) on 07/14/2024 3:35:56 PM GEMUSE 07/14/2024 2:54 PM EST 07/14/2024 3:35 PM EST us Ean Felix MD ECG ORDERABLES Final Result GEMUSE from Last 3 Months Insurance [employer] Care Teams Crew Member Relationship Specialty Start Date End Date Byron Serra MD [address] [place] [address] PCP - General Internal Medicine 05/06/24
--- OUTSIDE RECORDS SUMMARY | 2024-08-02 18:51 | XMS_ITS | Clinical Summary ---
Author Organization [facility] Address [address] [place] [address] Care Team Providers Care Manager Of Corporate Name Role Phone Unavailable Primary Care Provider Unavailabl e Allergies Active Allergy Reactions Criticality Noted Date Comments Sulfamethoxazole-Trimethop rim 02/17/2024 Other reaction(s): Rash Medications Medication Sig Dispensed Refills Start Date End Date Status atorvastatin (LIPITOR) tablet 80 mg Take 1 tablet (80 mg total) by mouth daily. 0 01/28/2024 Active baclofen (LIORESAL) 5 MG tablet TAKE 1 TABLET BY MOUTH TWICE A DAY NEEDED 0 01/06/2024 Active bisoprolol (ZEBETA) 5 MG tablet Take 1 tablet (5 mg total) by mouth daily. 0 01/15/2024 Active folic acid (FOLVITE) tablet 1 mg TAKE 1 TABLET BY MOUTH EVERY DAY FOR 90 DAYS 0 11/21/2023 Active furosemide (LASIX) 20 MG tablet Take 1 tablet (20 mg total) by mouth 2 (two) times a day. 0 12/09/2023 Active levothyroxine (SYNTHROID) tablet 75 mcg TAKE 1 TABLET BY MOUTH EVERY DAY FOR 90 DAYS 0 01/15/2024 Active metFORMIN (GLUCOPHAGE) tablet 500 mg TAKE 1 TABLET BY MOUTH EVERY DAY WITH A MEAL FOR 90 DAYS 0 11/21/2023 Active pantoprazole (PROTONIX) 40 MG tablet Take 1 tablet (40 mg total) by mouth daily. 0 01/26/2024 Active venlafaxine (EFFEXOR) 75 MG tablet TAKE 1 TABLET BY MOUTH TWICE A DAY WITH FOOD 0 12/28/2023 Active Social History Tobacco Use Types Packs/Day Years Used Date Smoking Tobacco: Never Assessed Sex and Gender Information Value Date Recorded Sex Assigned at Female 2024 2:14 PM EDT Gender Identity Not on file Sexual Orientation Not on file Job Start Date Occupation Industry Not on file Not on file Not on file Last Filed Vital Signs Vital Sign Reading Time Taken Comments Blood Pressure 117/70 02/17/2024 1:04 PM EDT Pulse 63 02/17/2024 1:04 PM EDT Temperature 36 ??C (96.8 ??F) 02/17/2024 1:04 PM EDT Respiratory Rate - - Oxygen Saturation 87% 02/17/2024 1:04 PM EDT Inhaled Oxygen Concentration - - Weight - - Height - - Body Mass Index - - Plan of Treatment Health Maintenance Due Date Last Done Comments COVID-19 Vaccine (#1) 1938 Depression Screening 1950 Preventative Health Evaluation 01/05/1956 DTap / Tdap / Td (1 - Tdap) 1957 Fall Risk Assessment 2003 Osteoporosis Screening (DEXA Scan) 2003 Pneumococcal Vaccine (1 of 1 - PCV) 2003 RSV Adult > 60+ Yrs or Pregn ant (1 - 1-dose 75+ series) 2013 Shingrix-Zoster Vaccine (2 of 2) 02/24/2018 12/31/19 18 Influenza Vaccine (#1) 2024 02/16/2020 Hepatitis B Vaccines Aged Out No long er eligible based on patient's age to complete this topic RSV Ped < 20 months Aged Out No longe r eligible based on patient's age to complete this topic
[2024-08-02 20:53] VITALS: PULSE 61; O2SAT 88
== END 2024-08-02 15:32 | disposition home or self-care (01) ==
PROVIDERS: PCP Internal Medicine; Visit Provider Hospitalist
DX: J96.11 Chronic respiratory failure with hypoxia (principal); J41.0 Simple chronic bronchitis
CPT/HCPCS: 94618; 99214; G2211

== ENCOUNTER → 2024-08-02 14:55 | Outpatient (BNVA) | payer MEDICARE, SELFPAY | PROVIDERS: PCP Internal Medicine; Visit Provider Hospitalist | DX: J41.0 Simple chronic bronchitis (principal); J96.11 Chronic respiratory failure with hypoxia | CPT/HCPCS: 94618; 99212 ==

== ENCOUNTER 2025-05-08 14:16 | Outpatient (AMB) | payer MEDICARE, SELFPAY ==
[2025-05-08 14:28] VITALS: BP 130/64; PULSE 64; O2SAT 92; BMI 21.6
--- NOTE | 2025-05-08 14:28 | A.OFFVIS_ITS ---
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 Also has underlying hypoxia in uses oxygen at nighttime due to the COPD. She has been on QVAR and Bevespi with very good response. She has not had to use her rescue therapy. However, her insurance now is not covering the bevespi and will need alternative. The oxygen therapy has been affecting beneficial at nighttime. She does need to continue the oxygen therapy at nighttime. In the meantime the patient needs to be switched ove to a different maintenance inhaler since is not being covered. I do believe trilogy will be a good option for her. In the meantime will have her go back Anoro since she still has QVAR. 12/2019 the patient is here for pulmonary follow-up visit. Overall she feels well. She still complains of dyspnea on exertion moderate severity. Specially when walking outside. She does take the QVAR and also the Anoro with good effect. Sometimes she takes the QVAR and she does not feel like she is getting any medication to her system her. We did talk about starting her on trelegy which she is going to be able to take all medicines at once and have better compliance with the medication. She also uses the oxygen at nighttime with good effect. She has qualified in the past for portable oxygen therapy. She is reluctant to use portable oxygen at this time. Whenever she decides to consider portable oxygen will have her come in for 6 minutes walk test for her for her to qualify for it. 07/09/2020 the patient is here for pulmonary follow-up visit. Overall the patient has been doing well. She had tried the Trelegy inhaler but was not effective for her. Therefore she went back to using the Anoro. She has not been using the QVAR. She denies any mucus production denies any wheezing. This point I think she probably best with the inhale type of medication for maintenance inhaler. Therefore I will send her Bevespi to the pharmacy. We did talk about her x-ray that she had back in December which demonstrated no acute disease. And right now she is diminished. She is using oxygen at nighttime for her nocturnal hypoxia. She may need oxygen with activity. She does check herself at home with a pulse ox and she does not drop below 90%. Will plan to do pulmonary function studies and a 6 minutes walk test during her next visit. 12/13/2020 the patient is here for a pulmonary follow-up visit. She continues to have dyspnea exertion. Moderate in severity. She does not feel the Bevespi or any other inhaler really made a significant difference in her breathing. She has been using her oxygen nighttime. When she is resting she does not feel short of breath. The patient is also recovering a fall where she fractured some ribs. She was evaluated [facility] where she did undergo a CT scan of the chest demonstrating extensive emphysema and the rib fracture. During the visit the patient did undergo pulmonary function studies which were personally viewed by me demonstrating a severe diffusion impairment secondary to her emphysema. The patient did undergo a 6 minutes walk where she did desaturate down to 85% air. She was then placed 3 L her oxygenation did improve to 94 activity. Therefore, will arrange her [employer] to get oxygen portability outside the. Also requested that they performed a conserving device trial to see if she qualifies for a smaller pulse oxygen. 07/04/2021 the patient is here for a pulmonary follow-up visit. The patient apparently developed signs and symptoms consistent with stroke. She could not walk any further. She was taken to [facility] which was admitted. She was diagnosed with a stroke in addition to that she was diagnosed with a myocardial infarction. She did undergo a cardiac catheterization and had a stent placement. In the meantime she continues use the oxygen at nighttime. The oxygen therapy has been affecting beneficial. She was wondering if she should be retested. However, we did review her pulmonary function studies demonstrating a diffusing capacity of only 25 percent predicted. The patient did have a CT scan of the chest also when she went to [facility]. We did personally reviewed. She does have extensive emphysema. No nodular densities to wear well. She does have a significant hiatal hernia. As far as her respiratory status is about the same. She continues on the Bevespi twice a day. She is wondering if this is helpful. Again, we did review her pulmonary function studies demonstrating underlying COPD. I did encourage to continue it but okay for her to just use it once a day. 04/14/2022 the patient is here for a pulmonary follow-up visit. Overall the patient has been doing well. She was briefly hospitalized after having altered mental status changes. Likely from medication and a UTI. The patient now is doing better. She is back to orientation x3. While a [facility] she did have a chest x-ray that I personally reviewed. No acute disease noted. The patient has been using the oxygen at nighttime. She states that when she was at rehab she did in use the oxygen at all. She is wondering if he still needs it. Concur go ahead and perform an overnight oximetry on room air to see if she still needs it. Explained to the patient that sometimes the overnight ox oximetries test I does not shots done always tell the full story. Will go ahead and do the testing. 04/20/2023 the patient is here for a pulmonary follow-up visit. She is been having hard time with her breathing. Having significant shortness of breath and chest tightness. The patient has been using her oxygen with sleep. Although even with minimal activity she is getting very winded. She has a hard time walking because of her musculoskeletal issues. She does use a walker for the most part. The patient is wondering if she needs oxygen with activity. In the meantime she has been using the Bevespi inhaler. She does not have a rescue inhaler. She has significant wheezing on examination with a very prolonged expiratory phase. We did provide her with a nebulized treatment in the office with Xopenex and improvement was significant. Therefore we will provide her with a nebulizer for her to take with her. She can use the nebulizer with Xopenex in addition to budesonide. She should continue with Bevespi. The patient will need a little bit of prednisone just to try to improve her respiratory symptoms a little faster. Patient also went for a very brief walking oximetry. She is very limited only walking about 25 ft. However, her pulse ox was decreased down to about 84 %. Although difficult to get a good wave. We did place on 3 L maintaining a pulse ox of 92% so therefore the patient will be able to use 3 L with activity and 2 L with sleep. Does not appear that she needs oxygen at rest at this time. If the patient is no better she will call the office and request a chest x-ray. will have the patient follow-up in 3 months time. The patient will call the office if she is not doing any better prior to that. Will send a script also as a revision for her oxygen in order for her to get portable tanks to be able to take with her outside of the home. Based on her oxygen needs she will not likely a qualify for a conserving valve at this time. Will reassess a conserving valve during her next visit in 3 months. 08/02/2024 the patient is here for pulmonary follow-up visit. The patient since we last spoke has had further physical limitations. She does need a walker with any activity and sometimes she does use a wheelchair to get around because of her unsteady gait. She does have extensive emphysema on CT scan and also evidence of chronic hypoxic respiratory failure requiring oxygen. She does use oxygen 2 L at rest and also with activity and sleep. She has a hard time caring the oxygen tanks because the now she is very limited physically. Therefore will request a portable oxygen concentrator at 2 L pulse the patient can use with more ease outside of the home. In addition to that she continue to use the oxygen 2 L while sleeping. She has had issues with her inhalers were now the Bevespi 2 expensive. Anoro seems to be just as expensive. Also Wixela to the pharmacy. She also can use a nebulizer. Hold off on the budesonide. 05/08/2025 the patient is here for pulmonary follow-up visit. Overall she is doing okay. The patient continues on the Xopenex nebs twice a day and she seems to be tolerating that well. Still feels shortness of breath. She mainly uses a wheelchair. She does have a portable oxygen concentrator that she uses with some relief. She also has a concentrator in the home. Although she has a hard time walking because of her right foot. She was going to get Botox for but she ended up decided not to undergo that. So for now she is doing okay her respiratory exam is reassuring. She will continue with the neb treatments as prescribed. I did provide her with an incentive spirometer so she can work on deep breathing exercises to allow her to be able to expand her lungs better specially since she is more limited from a physical standpoint. The patient will follow-up in 6-8 months if she has not issues prior to this she can always call for further recommendations. [facility] Medical History (Updated 07/04/21 @ 22:00 by Landen Isidro MD) CAD (coronary artery disease) CVA (cerebral vascular accident) Chronic respiratory failure COPD (chronic obstructive pulmonary disease) Social History Patient Tobacco Use Status: Former Tobacco user Tobacco use type: Cigarette Years Smoked: 30 years Review of Systems Const Denies night sweats and Reports weakness ENT Denies change in voice, Denies lip swelling, Denies mouth pain, Reports nasal congestion, Reports nasal discharge and Denies tongue swelling Card Denies chest pain, Reports dyspnea and Reports dyspnea on exertion Resp Reports cough, Reports dyspnea, Reports dyspnea on exertion and Reports wheezing GI Denies abdominal pain Musc Reports abnormal gait, Reports deformity and Reports stiffness Neuro Reports Neuro-related abnormal movements, Reports abnormal gait, Reports paresthesias and Reports weakness Psych Denies no additional complaints Kumar/Lymph Denies easy bleeding and Denies lymphadenopathy Aller/Immun Denies lip swelling, Denies tongue swelling and Reports wheezing Physical Exam Vital Signs: Last Vital Signs Pulse 64 05/08/25 14:28 BP 130/64 05/08/25 14:28 Pulse Ox 92 05/08/25 14:28 Oxygen Delivery Method Room Air 05/08/25 14:28 BMI result Body Mass Index 21.6 Const General: alert Neck Neck: Yes normal visual inspection, Yes full ROM and Yes no lymphadenopathy Chest Chest palpation & inspection: normal inspection of the chest Resp Effort & Inspection: prolonged expiratory phase Auscultation: wheezes and diminished lung sounds Cardio Rate: regular rate Rhythm: regular rhythm Heart sounds: S1 normal heart sound present and S2 normal heart sound present GI Palpation (GI): Soft to palpation and nontender Auscultation: normal bowel sounds Skin General skin exam: rashes and/or lesions noted Extrem Right lower extremity: foot Details: ROM of toes abnormal Assessment & Plan Assessment & Plan (1) Chronic respiratory failure: Code(s): J96.10 - Chronic respiratory failure, unspecified whether with hypoxia or hypercapnia Category: Medical Qualifiers: Respiratory failure complication: hypoxia Qualified Code(s): J96.11 - Chronic respiratory failure with hypoxia (2) COPD (chronic obstructive pulmonary disease): Code(s): J44.9 - Chronic obstructive pulmonary disease, unspecified Category: Medical Qualifiers: COPD type: chronic bronchitis Chronic bronchitis type: simple Qualified Code(s): J41.0 - Simple chronic bronchitis Plan Wixela Xopenex BID nebs ISS (provided) oxygen: POC oxygen 2L/pulse for portability outside of the home. 2l/min while sleeping Follow-up in 6-8 months Coding Level of Care Code Complex visit Add On G2211 Diagnoses Chronic respiratory failure with hypoxia J96.11 Respiratory failure complication: hypoxia Simple chronic bronchitis J41.0 COPD type: chronic bronchitis Chronic bronchitis type: simple Time Spent (min) 16
--- OUTSIDE RECORDS SUMMARY | 2025-05-08 23:12 | XMS_ITS | Clinical Summary ---
Author Organization [facility] Expert TA Address [address] [place] [address] Phone Care Team Providers Care Microsoft Crm Developer Name Role Phone Byron Serra MD Primary [...] WITH A MEAL FOR 90 DAYS Active glycopyrrolate-f ormoterol (Bevespi Aerosphere) 9-4.8 mcg HFA aerosol inhaler inhaler Inhale 2 puffs by mouth 2 (two) times a day. Active furosemide (LASIX) 20 mg tablet Take 1 tablet (20 mg total) by mouth 1 (one) time each day. 07/14/2024 Active aspirin 81 mg EC tablet Take 1 tablet (81 mg total) by mouth 1 (one) time each day. Active Active Problems Problem Noted Date Diagnosed Date Coronary artery disease 07/14/2024 Assessment & Plan (07/14/2024 4:59 PM EST): Status post PCI of RCA almost 4 years ago. No recurrent angina or ACS since then. Will continue aspirin, and high-dose statin. Orders: Ambulatory referral to Cardiology ECG 12 lead Surgical History Surgery Date Site/Laterality Comments HYSTERECTOMY PROCEDURE:HYSTERECTOMY SECTION PROCEDURE: SECTION CAROTID STENT PROCEDURE:CAROTID STENT Medical History Medical History Date Comments Hypothyroidism DX:Hypothyroidis m Stroke ([facility] V24, CMS/[facility] V28) DX:Stroke ([facility]) Social History Tobacco Use Types Packs/Day Years [...] on file Sexual Orientation Not on file Last Filed Vital Signs [...] 07/14/2024 2:42 PM EST Plan of Treatment Upcoming Encounters Date Type Department Care Team (Late st Contact Info) Description 05/18/2025 9:30 AM EST Appointment [facility] Ultrasound [address] [place] [address] Health Maintenance Due Date Last Done Comments DTaP,Tdap,and Td Vaccines (1 - Tdap) 1959 Pneumococcal Vaccine: 50+ Years (1 of 2 - PCV) 1959 Zoster Vaccines (3 of 3) 02/24/2018 12/30/2017, 07/30 Cholesterol Screening (Lipid Panel) 05/04/2022 Falls Risk Assessment 05/04/2022 Medicare Annual Wellness Visit 05/04/2022 Osteoporosis Screening (Bone Density Screening) 05/04/2022 Social Influencers of Health Screening 05/04/2022 Depression Screening 06/01/2024 COVID-19 Vaccine ( season) 2025 04/09/2024, 05/22/2022, 12/05/2021, Additional history exists Influenza Vaccine (#1) 2025 , 03/27/2023, 04/11/2021, Additional history exists Hypertension/CHF/CAD Annual BMP Blood Test 12/19/2025 12/19/2024, 12/15/2024, 12/12/2024 RSV Immunization Adult Patients Completed 04/11/2023 HIB Vaccines Aged Out No longer eligi [...] age to complete this topic Meningococcal B Vaccine Aged Out No l onger eligible based on patient's age to complete this topic RSV Immunization Patients Under 20 months Aged Out No longer eligible based on patient's age to complete this topic Varicella Vaccines Aged Out No longer eligible based on patient's age to complete this topic Procedures Procedure Name Priority Date/Time Associated Diagnosis Comments BASIC METABOLIC PANEL Routine 12/19/2024 6:14 AM EDT Essential (primary) hypertension from Last 3 Months or Most Recently Relevant to Health Maintenance Results * Basic metabolic panel (12/19/2024 6:14 AM EDT) Sodium 138 133 - 145 mmol/L LAB CHEMISTRY METHOD 12/19/2024 12:20 PM EDT [facility] Potassium 4.8 3.5 - 5.5 mmol/L LAB CHEMISTRY METHOD 12/19/2024 12:20 PM [facility] Chloride 102 96 - 110 mmol/L LAB CHEMISTRY METHOD 12/19/2024 12:20 PM [facility] CO2 27 21 - 32 mmol/L LAB CHEMISTRY METHOD 12/19/2024 12:20 PM [facility] Anion Gap 9 3 - 11 LAB CHEMISTRY METHOD 12/19/2024 12:20 PM [facility] Glucose 90 70 - 100 mg/dL LAB CHEMISTRY METHOD 12/19/2024 12:20 PM [facility] BUN 15 5 - 25 mg/dL LAB CHEMISTRY METHOD 12/19/2024 12:20 PM [facility] Creatinine 0.82 0.50 - 1.10 mg/dL LAB CHEMISTRY METHOD 12/19/2024 12:20 PM [facility] eGFR 70 >=60 mL/min/1. 73m2 LAB CHEMISTRY METHOD 12/19/2024 12:20 PM [facility] Comment:Calculation based on the Chronic Kidney Disease Epidemiology Collaboration (CKD-EPI) equation refit without adjustment for race. BUN/Creatinine Ratio 18.3 LAB CHEMISTRY METHOD 12/19/2024 12:20 PM [facility] Calcium 9.1 8.5 - 10.5 mg/dL LAB CHEMISTRY METHOD 12/19/2024 12:20 PM [facility] Blood Venous blood specimen / Unknown Venipuncture / Unknown 12/19/2024 6:14 AM EDT 12/19/2024 9:43 AM EDT us Rita Davenport MD LAB BLOOD ORDERABLES Final Resul t [facility] [address] [place] [address], [place] [phone] from Last 3 Months or Most Recently Relevant to Health Maintenance Insurance [employer] Care Teams Microsoft Crm Developer Relationship Specialty Start Date End Date Byron Serra MD [address] [place] [address] PCP - General Internal Medicine 05/06/24
--- OUTSIDE RECORDS SUMMARY | 2025-05-08 23:12 | XMS_ITS ---
Author Organization [facility] Care Team Providers Care Pavilion Cutter Name Role Phone Jackie Alvarado Unavailable Unavailable Rita Davenport Unavailable Unavailable Iva Valadez Unavailable Unavailable Allergies and adverse reactions Code CodeSystem Substance Reaction Severity StartDate Concern Status Bactrim Drug-induced hy perpyrexia (code- 683217765, SNOMED CT) Moderate 03/06/2021 active Care Team Name Role Address Phone Organization Dates Rita Davenport PCP [address] [facility] [address], [address], [facility] (Office): [facility] 03/07/2021 - 05/02/2021 Jackie Alvarado [address], [address], [facility] (Office): [facility] 03/07/2021 - 05/02/2021 Iva Valadez [address], [address], [facility] (Office): [facility] 03/07/2021 - 05/02/2021 Immunizations Immunization Status Vaccine Details Vaccine Code CodeSystem Date Notes Influenza completed Influenza, split virus, trivalent, injectable, contains preservative lotNumber: [id number] expiry: 11/13/2021 Mfg: AFLURIA qUADRIVALENT Given 0.5 ml Left Deltoid intramuscularly 141 CVX created date: 04/04/2021 administer ed date: 04/02/2021 Educated by Gail Bradford on 04/02/2021 SARS-COV-2 (COVID-19) completed SARS-COV-2 (COVID-19) vaccine, mRNA, spike protein, LNP, preservative free, 100 mcg/0.5mL dose or 50 mcg/0.25mL dose Mfg: Moderna Step 2 of Multi-step with next step required 207 CVX created date: 03/07/2021 administer ed date: 08/03/2020 SARS-COV-2 (COVID-19) completed SARS-COV-2 (COVID-19) vaccine, mRNA, spike protein, LNP, preservative free, 100 mcg/0.5mL dose or 50 mcg/0.25mL dose Mfg: Moderna Step 1 of Multi-step with next step required 207 CVX created date: 03/07/2021 administer ed date: 07/06/2020 Mental Status Section Date Assessment Total Score Description 05/02/2021 BIMS 15 cognitively int act CAM 0 No delirium ind icated PHQ-9 00 03/12/2021 BIMS 15 cognitively int act CAM 0 No delirium ind icated PHQ-9 00 Insurance Providers Coverage Status Coverage Type Relationship to Subscriber Member Identifier Subscriber Identifier Group Identifier Payer Identifier and Other information 2021 Code: 51 Code System OID:[id number] .[id number]. 5 Code System Name: Source of Payment Typology (PHDSC) Display: Managed Care (Private) Translation: Code: Code System: OID:[id number] .[id number]. 1336 Code System Name: Insurance Type Code ([id number]) Display Name: Health Maintenance Organization (HMO) Plan Code: SELF Code System Name: HL7 RoleCode Code System OID:[id number] .846458.5.111 Display Name: Self [id number] Root: [id number] Payer Identifier: Root: [id number] Extension: [id number] Payer Name: Rex Address: [address] City: [place] State: [place] Country: [employer] [facility] Code: 81 Code System OID:[id number] .[id number]. 5 Code System Name: Source of Payment Typology (PHDSC) Display: Self Pay Translation: Code: 09 Code System: OID:[id number] .072151.6.255. 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 [address] active 6 CHRONIC OBSTRUCTIVE PULMONARY DISEASE, UNSPECIFIED [address] active 7 CONTRACTURE, RIGHT ANKLE [address] active 8 HEMIPLEGIA AND HEMIPARESIS FOLLOWING CEREBRAL INFARCTION AFFECTING RIGHT DOMINANT SIDE [address] active 9 HYPERLIPIDEMIA, UNSPECIFIED [address] active 10 HYPOTHYROIDISM, UNSPECIFIED [address] active 11 MUSCLE WASTING AND ATROPHY, NOT ELSEWHERE CLASSIFIED, RIGHT LOWER LEG [address] active 12 MUSCLE WASTING AND ATROPHY, NOT ELSEWHERE CLASSIFIED, RIGHT THIGH [address] active 13 MUSCLE WEAKNESS (GENERALIZED) [address] active 14 OTHER ABNORMALITIES OF GAIT AND MOBILITY [address] active 15 OTHER LACK OF COORDINATION [address] active 16 PERIPHERAL VASCULAR DISEASE, UNSPECIFIED [address] active 17 [address]ABETES [address] active 18 [address] ELEVATION (STEMI) 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 [address] active 19 UNSPECIFIED FALL, SEQUELA [address] active 20 UNSTEADINESS ON FEET [address] active 21 WE[address] active Reason for Referral No Reasons for Referral Entered Social History Social History Observation Description Start Date End Date Code Code System Current Smoking Status Tobacco smoking consumption unknown 794952756 SNOMED CT Sex Assigned At Female 1940 29685-7 [facility] Gender Identity Sexual Orientation Vital Signs Code Code System Vitals Name Values and Units Timing Information 12566-6 [facility] Pain Level Value=0.0 05/02/2021 9279-1 [facility] Respiratory Rate Value=18.0 Units=/m in 05/02/2021 8310-5 [facility] Body Temperature Value=97.7 Units= F 05/02/2021 8867-4 [facility] Heart rate Value=72.0 Units=/min 07/2020 8462-4 [facility] Blood Pressure-Diastolic Value=67 Un its=mmHg 05/02/2021 8480-6 [facility] Blood Pressure-Systolic Pvahi=130 Un its=mmHg 05/02/2021 40038-2 [facility] O2 % BldC Oximetry Value=96.0 Units= % 05/02/2021 88909-9 [facility] Weight Lrypr=183.7 Units=Lbs 06/2020 8302-2 [facility] Height Value=63.0 Units=Inches 03/07/2021
--- OUTSIDE RECORDS SUMMARY | 2025-05-08 23:12 | XMS_ITS ---
Author Name [facility] ([place], [place]) Organization Unknown History of Medication Use Medication Directions Dispensed Refills Start Date End Date Stat us atorvastatin (LIPITOR) tablet 80 mg Take 1 tablet (80 mg total) by mouth daily. 01/28/2024 active pantoprazole (PROTONIX) 40 MG tablet Take 1 tablet (40 mg total) by mouth daily. 01/26/2024 active bisoprolol (ZEBETA) 5 MG tablet Take 1 tablet (5 mg total) by mouth daily. 01/15/2024 active levothyroxine (SYNTHROID) tablet 75 mcg TAKE 1 TABLET BY MOUTH EVERY DAY FOR 90 DAYS 01/15/2024 active baclofen (LIORESAL) 5 MG tablet TAKE 1 TABLET BY MOUTH TWICE A DAY NEEDED 01/06/2024 active venlafaxine (EFFEXOR) 75 MG tablet TAKE 1 TABLET BY MOUTH TWICE A DAY WITH FOOD 12/28/2023 active furosemide (LASIX) 20 MG tablet Take 1 tablet (20 mg total) by mouth 2 (two) times a day. 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
--- OUTSIDE RECORDS SUMMARY | 2025-05-08 23:12 | XMS_ITS | Encounter Summary ---
Author Organization [facility] Address [address] [place] [address] Care Team Providers Care Manager Endoscopy Name Role Phone Byron Serra MD Primary Care Provider [phone] Encounter Details Date Type Department Care Team (Late Contact Info) Description 12/24/2024 Lab Requisition [facility] - Main Lab [address] [facility] [place] [address] Rita Davenport MD [address] [place] [address] Essential (primary) hypertension Social History Tobacco Use Types Packs/Day Years Used Date Smoking Tobacco: Never Alcohol Use Standard Drinks/Week Comments Not Currently 0 (1 standard drink = 0.6 oz pur e alcohol) Comments Unknown Sex and Gender Information Value Date Recorded Sex Assigned at Not on file Legal Sex Female 6:42 AM EST Gender Identity Not on file Sexual Orientation Not on file documented as of this encounter Plan of Treatment Upcoming Encounters Date Type Department Care Team (Late Contact Info) Description 05/18/2025 9:30 AM EST Appointment [facility] Ultrasound [address] [place] [address] documented as of this encounter Visit Diagnoses Diagnosis Essential (primary) hypertension Unspecified essential hypertension documented in this encounter Care Teams Manager Endoscopy Relationship Specialty Start Date End Date Byron Serra MD [address] [place] [address] PCP - General Internal Medicine 05/06/24 documented as of this encounter
--- OUTSIDE RECORDS SUMMARY | 2025-05-08 23:12 | XMS_ITS | Encounter Summary ---
Author Organization [facility] Address [address] [place] [address] Care Team Providers Care Signal Intelligence/Electronic Warfare Name Role Phone Byron Serra MD Primary Care Provider [phone] Encounter Details Date Type Department Care Team (Late st Contact Info) Description 12/16/2024 Lab Requisition [facility] - Main Lab [address] [facility] [place] [address] Rita Davenport MD [address] [place] [address] Essential (primary) hypertension Social History Tobacco Use [...] Info) Description 05/18/2025 9:30 AM EST Appointment [facility] Ultrasound [address] [place] [address] documented as of this encounter Procedures Procedure Name Priority Date/Time Associated Diagnosis Comments COMPLETE BLOOD COUNT Routine 12/19/2024 6:14 AM EDT Essential (primary) hypertension BASIC METABOLIC PANEL Routine 12/19/2024 6:14 AM EDT Essential (primary) hypertension documented in this encounter Results * Basic metabolic panel (12/19/2024 6:14 AM EDT) Sodium 138 133 - 145 mmol/L LAB CHEMISTRY METHOD 12/19/2024 12:20 PM [facility] Potassium 4.8 3.5 - 5.5 mmol/L LAB CHEMISTRY METHOD 12/19/2024 12:20 PM [facility] Chloride 102 96 - 110 mmol/L LAB CHEMISTRY METHOD 12/19/2024 12:20 PM [facility] CO2 27 21 - 32 mmol/L LAB CHEMISTRY METHOD 12/19/2024 12:20 PM [facility] Anion Gap 9 3 - 11 LAB CHEMISTRY METHOD 12/19/2024 12:20 PM [facility] Glucose 90 70 - 100 mg/dL LAB CHEMISTRY METHOD 12/19/2024 12:20 PM [facility] BUN 15 5 - 25 mg/dL LAB CHEMISTRY METHOD 12/19/2024 12:20 PM [facility] Creatinine 0.82 0.50 - 1.10 mg/dL LAB CHEMISTRY METHOD 12/19/2024 12:20 PM [facility] eGFR 70 >=60 mL/min/1. 73m2 LAB CHEMISTRY METHOD 12/19/2024 12:20 PM [facility] Comment:Calculation based on the Chronic Kidney Disease Epidemiology Collaboration (CKD-EPI) equation refit without adjustment for race. BUN/Creatinine Ratio 18.3 LAB CHEMISTRY METHOD 12/19/2024 12:20 PM [facility] Calcium 9.1 8.5 - 10.5 mg/dL LAB CHEMISTRY METHOD 12/19/2024 12:20 PM [facility] Blood Venous blood specimen / Unknown Venipuncture / Unknown 12/19/2024 6:14 AM EDT 12/19/2024 9:43 AM EDT us Rita Davenport MD LAB BLOOD ORDERABLES Final Resul t [facility] [address] [place] [address], * (ABNORMAL) Complete blood count (12/19/2024 6:14 AM EDT) WBC 8.9 4.8 - 10.8 K/mcL LAB HEMETOLOGY METHOD 12/19/2024 11:00 AM EDT [facility] RBC 3.30(L) 3.80 - 4.80 M/mcL LAB HEMETOLOGY METHOD 12/19/2024 11:00 AM EDT [facility] Hemoglobin 10.8(L) 11.5 - 16.0 g/dL LAB HEMETOLOGY METHOD 12/19/2024 11:00 AM EDT [facility] Hematocrit 33.1(L) 35.0 - 47.0 % LAB HEMETOLOGY METHOD 12/19/2024 11:00 AM EDT [facility] MCV 99.7(H) 79.0 - 98.0 FL LAB HEMETOLOGY METHOD 12/19/2024 11:00 AM [facility] MCH 32.5(H) 27.0 - 32.0 pcg LAB HEMETOLOGY METHOD 12/19/2024 11:00 AM EDT [facility] MCHC 32.6 32.0 - 37.0 g/dL LAB HEMETOLOGY METHOD 12/19[facility]2024 11[facility] RDW 13.7 11.0 - 15.0 % LAB HEMETOLOGY METHOD 12/19/2024 11:00 AM [facility] Platelets 452(H) 130 - 400 K/mcL LAB HEMETOLOGY METHOD 12/19/2024 11:00 AM EDT [facility] MPV 9.1 7.0 - 11.0 FL LAB HEMETOLOGY METHOD 12/19/2024 11:00 AM EDT [facility] NRBC 0.0 <1.0 % LAB [facility] METHOD 12/19/2024 11:00 AM EDT [facility] NRBC Absolute 0.00 <0.10 K/mcL LAB HEMETOLOGY METHOD 12/19/2024 11:00 AM EDT [facility] Blood Venous blood specimen / Unknown Venipuncture / Unknown 12/19/2024 6:14 AM EDT 12/19/2024 9:43 AM EDT Rita Davenport MD LAB BLOOD ORDERABLES Final Resul t [facility] [address] [place] [address], documented in this encounter Visit Diagnoses Diagnosis Essential (primary) hypertension Unspecified essential hypertension documented in this encounter Care Teams Signal Intelligence/Electronic Warfare Relationship Specialty Start Date End Date Byron Serra MD [address] [place] [address] PCP - General Internal Medicine 05/06/24 documented as of this encounter
--- OUTSIDE RECORDS SUMMARY | 2025-05-08 23:13 | XMS_ITS | Encounter Summary ---
Author Organization [facility] Address [address] [place] [address] Care Team Providers Care Montessori Teacher Name Role Phone Byron Serra MD Primary Care Provider [phone] Encounter Details Date Type Department Care Team (Late Contact Info) Description 12/14/2024 Lab Requisition [facility] - Main Lab [address] [facility] [place] [address] Rita Davenport MD [address] [place] [address] Chronic obstructive pulmonary disease, unspecified (CMS/HCC V24, CMS/HCC V28) Social History Tobacco Use Types Packs/Day Years [...] Info) Description 05/18/2025 9:30 AM EST Appointment [facility] Ultrasound [address] [place] [address] documented as of this encounter Procedures Procedure Name Priority Date/Time Associated Diagnosis Comments BASIC METABOLIC PANEL Routine 12/15/2024 7:38 AM EDT Chronic obstructive pulmonary disease, unspecified (CMS/HCC V24, CMS/HCC V28) documented in this encounter Results * (ABNORMAL) Basic metabolic panel (12/15/2024 7:38 AM EDT) Sodium 138 133 - 145 mmol/L LAB CHEMISTRY METHOD 12/15/2024 10:28 AM [facility] Potassium 4.1 3.5 - 5.5 mmol/L LAB CHEMISTRY METHOD 12/15/2024 10:28 AM [facility] Chloride 99 96 - 110 mmol/L LAB CHEMISTRY METHOD 12/15/2024 10:28 AM [facility] CO2 39(H) 21 - 32 mmol/L LAB CHEMISTRY METHOD 12/15/2024 10:28 AM [facility] Comment:Results verified by repeat testing Anion Gap 0(L) 3 - 11 LAB CHEMISTRY METHOD 12/15/2024 10:28 AM [facility] Glucose 111(H) 70 - 100 mg/dL LAB CHEMISTRY METHOD 12/15/2024 10:28 AM [facility] BUN 7 5 - 25 mg/dL LAB CHEMISTRY METHOD 12/15/2024 10:28 AM [facility] Creatinine 0.69 0.50 - 1.10 mg/dL LAB CHEMISTRY METHOD 12/15/2024 10:28 AM [facility] eGFR 85 >=60 mL/min/1. 73m2 LAB CHEMISTRY METHOD 12/15/2024 10:28 AM [facility] Comment:Calculation based on the Chronic Kidney Disease Epidemiology Collaboration (CKD-EPI) equation refit without adjustment for race. BUN/Creatinine Ratio 10.1 LAB CHEMISTRY METHOD 12/15/2024 10:28 AM [facility] Calcium 9.4 8.5 - 10.5 mg/dL LAB CHEMISTRY METHOD 12/15/2024 10:28 AM [facility] Blood Venous blood specimen / Unknown Venipuncture / Unknown 12/15/2024 7:38 AM EDT 12/15/2024 9:17 AM EDT us Rita Davenport MD LAB BLOOD ORDERABLES Final Resul t [facility] [address] [place] [address], documented in this encounter Visit Diagnoses Diagnosis Chronic obstructive pulmonary disease, unspecified (CMS/HCC V24, CMS/HCC V28) documented in this encounter Care Teams Montessori Teacher Relationship Specialty Start Date End Date Byron Serra MD [address] [place] [address] PCP - General Internal Medicine 05/06/24 documented as of this encounter
--- OUTSIDE RECORDS SUMMARY | 2025-05-08 23:13 | XMS_ITS | Encounter Summary ---
Author Organization [facility] Address [address] [place] [address] Care Team Providers Care Paint Supervisor Name Role Phone Byron Serra MD Primary Care Provider [phone] Encounter Details Date Type Department Care Team (Late Contact Info) Description 12/12/[address] [facility] - Main Lab [address] [facility] [place] [address] Kandi Andre PA [address] [facility] [address] [facility] [place] [address] Chronic obstructive pulmonary disease, unspecified (CMS/HCC V24, CMS/HCC V28); Hypothyroidism, unspecified Social History Tobacco Use Types Packs/Day Years [...] Info) Description 05/18/2025 9:30 AM EST Appointment [facility] Ultrasound [address] [place] [address] documented as of this encounter Procedures Procedure Name Priority Date/Time Associated Diagnosis Comments VITAMIN B12 AND FOLATE Routine 12/12/2024 5:45 AM EDT Chronic obstructive pulmonary disease, unspecified (CMS/HCC V24, CMS/HCC V28) Hypothyroidism, unspecified COMPLETE BLOOD COUNT Routine 12/12/2024 5:45 AM EDT Chronic obstructive pulmonary disease, unspecified ([facility]/HCC V24, CMS/HCC V28) Hypothyroidism, unspecified THYROID STIMULATING HORMONE Routine 12/12/2024 5:45 AM EDT Chronic obstructive pulmonary disease, unspecified ([facility]/HCC V24, [facility]/HCC V28) Hypothyroidism, unspecified BASIC METABOLIC PANEL Routine 12/12/2024 5:45 AM EDT Chronic obstructive pulmonary disease, unspecified ([facility]/HCC V24, CMS/[facility] V28) Hypothyroidism, unspecified documented in this encounter Results * (ABNORMAL) Basic metabolic panel (12/12/2024 5:45 AM EDT) Sodium 141 133 - 145 mmol/L LAB CHEMISTRY METHOD 12/12/2024 5:09 PM [facility] Potassium 3.2(L) 3.5 - 5.5 mmol/L LAB CHEMISTRY METHOD 12/12/2024 5:09 PM [facility] Chloride 99 96 - 110 mmol/L LAB CHEMISTRY METHOD 12/12/2024 5:09 PM [facility] CO2 34(H) 21 - 32 mmol/L LAB CHEMISTRY METHOD 12/12/2024 5:09 PM [facility] Anion Gap 8 3 - 11 LAB CHEMISTRY METHOD 12/12/2024 5:09 PM [facility] Glucose 86 70 - 100 mg/dL LAB CHEMISTRY METHOD 12/12/2024 5:09 PM [facility] BUN 9 5 - 25 mg/dL LAB CHEMISTRY METHOD 12/12/2024 5:09 PM [facility] Creatinine 0.67 0.50 - 1.10 mg/dL LAB CHEMISTRY METHOD 12/12/2024 5:09 PM [facility] eGFR 85 >=60 mL/min/1. 73m2 LAB CHEMISTRY METHOD 12/12/2024 5:09 PM EDT [facility] Comment:Calculation based on the Chronic Kidney Disease Epidemiology Collaboration (CKD-EPI) equation refit without adjustment for race. BUN/Creatinine Ratio 13.4 LAB CHEMISTRY METHOD 12/12/2024 5:09 PM EDT [facility] Calcium 8.5 8.5 - 10.5 mg/dL LAB CHEMISTRY METHOD 12/12/2024 5:09 PM EDT [facility] Blood Venous blood specimen / Unknown Venipuncture / Unknown 12/12/2024 5:45 AM EDT 12/12/2024 11:39 AM EDT us Kandi CARNES LAB BLOOD ORDERABLES Final Resu lt [facility] [address] [place] [address], [place] [phone] * (ABNORMAL) Complete blood count (12/12/2024 5:45 AM EDT) WBC 7.4 4.8 - 10.8 K/mcL LAB HEMETOLOGY METHOD 12/12/2024 1:09 PM T [facility] RBC 3.30(L) 3.80 - 4.80 M/mcL LAB HEMETOLOGY METHOD 12/12/2024 1:09 PM [facility] Hemoglobin 10.8(L) 11.5 - 16.0 g/dL LAB HEMETOLOGY METHOD 12/12/2024 1:09 PM [facility] Hematocrit 33.5(L) 35.0 - 47.0 % LAB HEMETOLOGY METHOD 12/12/2024 1:09 PM T [facility] MCV 101.8(H) 79.0 - 98.0 FL LAB HEMETOLOGY METHOD 12/12/2024 1:09 PM EDT [facility] MCH 32.8(H) 27.0 - 32.0 pcg LAB HEMETOLOGY METHOD 12/12/2024 1:09 PM EDT [facility] MCHC 32.2 32.0 - 37.0 g/dL LAB HEMETOLOGY METHOD 12/12/2024 1:09 PM EDT [facility] RDW 13.9 11.0 - 15.0 % LAB HEMETOLOGY METHOD 12/12/2024 1:09 PM EDT [facility] Platelets 277 130 - 400 K/mcL LAB HEMETOLOGY METHOD 12/12/2024 1:09 PM EDT [facility] MPV 10.0 7.0 - 11.0 FL LAB HEMETOLOGY METHOD 12/12/2024 1:09 PM EDT [facility] NRBC 0.0 <1.0 % LAB HEMETOLOGY METHOD 12/12/2024 1:09 PM EDT [facility] NRBC Absolute 0.00 <0.10 K/mcL LAB HEMETOLOGY METHOD 12/12/2024 1:09 PM EDT [facility] Blood Venous blood specimen / Unknown Venipuncture / Unknown 12/12/2024 5:45 AM EDT 12/12/2024 11:39 AM EDT us Kandi CARNES LAB BLOOD ORDERABLES Final Resu lt [facility] [address] [place] [address], * (ABNORMAL) Vitamin B12 and folate (12/12/2024 5:45 AM EDT) Vitamin B-12 655 250 - 900 pcg/mL LAB CHEMISTRY METHOD 12/12/2024 5:31 PM EDT [facility] Folate >20.0(H) 2.8 - 17.0 ng/ml LAB CHEMISTRY METHOD 12/12/2024 5:31 PM EDT [facility] Blood Venous blood specimen / Unknown Venipuncture / Unknown 12/12/2024 5:45 AM EDT 12/12/2024 11:39 AM EDT Kandi CARNES LAB BLOOD ORDERABLES Final Resu lt Performing Organization Address [facility]/ZIP Co de Phone Number [facility] [address] [place] [address], [place] [phone] * Thyroid stimulating hormone (12/12/2024 5:45 AM EDT) TSH 1.44 0.40 - 4.00 mcIU/mL LAB CHEMISTRY METHOD 12/12/2024 6:06 PM EDT [facility] Blood Venous blood specimen / Unknown Venipuncture / Unknown 12/12/2024 5:45 AM EDT 12/12/2024 11:39 AM EDT us Kandi CARNES LAB BLOOD ORDERABLES Final Resu lt Performing Organization Address [facility]/ZIP Co de Phone Number [facility] [address] [place] [address], [place] [phone] documented in this encounter Visit Diagnoses Diagnosis Chronic obstructive pulmonary disease, unspecified (CMS/HCC V24, CMS/HCC V28) Hypothyroidism, unspecified documented in this encounter Care Teams Paint Supervisor Relationship Specialty Start Date End Date Byron Serra MD [address] [place] [address] PCP - General Internal Medicine 05/06/24 documented as of this encounter
--- OUTSIDE RECORDS SUMMARY | 2025-05-08 23:13 | XMS_ITS | Clinical Summary ---
Author Organization [facility] Prior to 10/29/24 Address [address] [place] [address] Care Team Providers Care Mucker Operator Name Role Phone Unavailable Primary Care Provider [...] 61 02/17/2024 1:04 PM EDT Temperature 36 C (96.8 F) 02/17/2024 1:04 PM EDT Respiratory Rate - [...] 2) 02/24/2018 12/31/19 18 Influenza Vaccine (#1) 2025 02/16/2020 Hepatitis B Vaccines Aged Out No long er eligible based on patient's age to complete this topic RSV Ped < 20 months Aged Out No longe r eligible based on patient's age to complete this topic
== END 2025-05-08 14:54 | disposition home or self-care (01) ==
LOC: HO.HPS 14:17
PROVIDERS: PCP Internal Medicine; Visit Provider Hospitalist
DX: J96.11 Chronic respiratory failure with hypoxia (principal); J41.0 Simple chronic bronchitis
CPT/HCPCS: 99214; G2211

== ENCOUNTER → 2025-05-08 14:16 | Outpatient (BNVA) | payer MEDICARE, SELFPAY | PROVIDERS: PCP Internal Medicine; Visit Provider Hospitalist | DX: J96.11 Chronic respiratory failure with hypoxia (principal); J41.0 Simple chronic bronchitis; Z87.891 Personal history of nicotine dependence | CPT/HCPCS: 99212 ==